=== PATIENT | male | born 1990 | race American Indian/Alaskan Native ===

== ENCOUNTER 2022-04-10 09:40 | Emergency (ER) | payer SELFPAY ==
[2022-04-10 10:19] VITALS: BP 98/71
--- NOTE | 2022-04-10 10:32 | Emergency Department Report ---
ED ENT HPI - General Chief complaint: Sore Throat Stated complaint: SORE THROAT/WHITE PATCHES Source: patient Mode of arrival: Ambulatory Limitations: No Limitations - History of Present Illness Initial comments: 32-year-old male presents to the ED complaining of sore throat x2 days. Patient states that he noticed some exudate on his tonsils and tried to remove it with a tongue blade. Patient is alert and oriented x3. No acute distress noted. No ill appearance noted. Denies any drooling. Patient states he been taking [id number] medication for pain. MD complaint: sore throat Onset/Timin -: week(s) Severity: moderate Severity scale (0 -10): 8 Quality: aching Consistency: intermittent Improves with: none Worsens with: swallowing - Related Data Previous Rx's Medication Instructions Recorded Last Taken Type Acetaminophen/Codeine [Tylenol 1 tab PO Q6H PRN 3 Days #12 tab 04/10/22 Unknown Rx /Codeine # 3 tab] Ibuprofen [Motrin] 800 mg PO Q8HR PRN 15 Days #30 04/10/22 Unknown Rx tablet Penicillin V Potassium 500 mg PO BID 10 Days #20 tab 04/10/22 Unknown Rx predniSONE [Deltasone] 50 mg PO QDAY 5 Days #5 tab 04/10/22 Unknown Rx Allergies Allergy/AdvReac Type Severity Reaction Status Date / Time nystatin Allergy Unknown Verified 04/10/22 10:19 ED Dental HPI - General Chief complaint: Sore Throat Stated complaint: SORE THROAT/WHITE PATCHES Source: patient Mode of arrival: Ambulatory Limitations: No Limitations - Related Data Previous Rx's Medication Instructions Recorded Last Taken Type Acetaminophen/Codeine [Tylenol 1 tab PO Q6H PRN 3 Days #12 tab 04/10/22 Unknown Rx /Codeine # 3 tab] Ibuprofen [Motrin] 800 mg PO Q8HR PRN 15 Days #30 04/10/22 Unknown Rx tablet Penicillin V Potassium 500 mg PO BID 10 Days #20 tab 04/10/22 Unknown Rx predniSONE [Deltasone] 50 mg PO QDAY 5 Days #5 tab 04/10/22 Unknown Rx Allergies Allergy/AdvReac Type Severity Reaction Status Date / Time nystatin Allergy Unknown Verified 04/10/22 10:19 ED Review of Systems ROS: Stated complaint: SORE THROAT/WHITE PATCHES Other details as noted in HPI Constitutional: denies: chills, fever Eyes: denies: eye pain, eye discharge, vision change ENT: throat pain. denies: ear pain Respiratory: denies: cough, shortness of breath, wheezing Cardiovascular: denies: chest pain, palpitations Endocrine: no symptoms reported Gastrointestinal: denies: abdominal pain, nausea, diarrhea Genitourinary: denies: urgency, dysuria Musculoskeletal: denies: back pain, joint swelling, arthralgia Skin: denies: rash, lesions Neurological: denies: headache, weakness, paresthesias Psychiatric: denies: anxiety, depression Hematological/Lymphatic: denies: easy bleeding, easy bruising ED Past Medical Hx - Past Medical History Previous Medical History?: Yes Additional medical history: tonsilitis - Medications Home Medications: Home Medications Medication Instructions Recorded Confirmed Last Taken Type Acetaminophen/Codeine [Tylenol 1 tab PO Q6H PRN 3 Days #12 tab 04/10/22 Unknown Rx /Codeine # 3 tab] Ibuprofen [Motrin] 800 mg PO Q8HR PRN 15 Days #30 04/10/22 Unknown Rx tablet Penicillin V Potassium 500 mg PO BID 10 Days #20 tab 04/10/22 Unknown Rx predniSONE [Deltasone] 50 mg PO QDAY 5 Days #5 tab 04/10/22 Unknown Rx ED Physical Exam - General Limitations: No Limitations General appearance: alert, in no apparent distress - Head Head exam: Present: atraumatic, normocephalic - Eye Eye exam: Present: normal appearance - ENT ENT exam: Present: mucous membranes moist - Neck Neck exam: Present: normal inspection - Respiratory Respiratory exam: Present: normal lung sounds bilaterally. Absent: respiratory distress - Cardiovascular Cardiovascular Exam: Present: regular rate, normal rhythm. Absent: systolic murmur, diastolic murmur, rubs, gallop - GI/Abdominal GI/Abdominal exam: Present: soft, normal bowel sounds - Rectal Rectal exam: Present: deferred - Extremities Exam Extremities exam: Present: normal inspection - Back Exam Back exam: Present: normal inspection - Neurological Exam Neurological exam: Present: alert, oriented X3 - Psychiatric Psychiatric exam: Present: normal affect, normal mood - Skin Skin exam: Present: warm, dry, intact, normal color. Absent: rash ED Course Vital Signs 04/10/22 10:14 Temperature 98.8 F Pulse Rate 86 Respiratory 18 Rate Blood Pressure 98/71 O2 Sat by Pulse 100 Oximetry ED Medical Decision Making - Medical Decision Making 32-year-old male presents to the ED complaining of sore throat x2 days. Patient states that he noticed some exudate on his tonsils and tried to remove it with a tongue blade. Patient is alert and oriented x3. No acute distress noted. No ill appearance noted. Denies any drooling. Patient states he been taking [id number] medication for pain. Physical examination erythema, tonsillar exudate and tonsillomegaly noted. Rechecked the patient is resting quietly , comfortable and feeling better. I discussed the results of diagnostic study, my clinical impression and the plan for further treatment with the patient. Patient agrees with plan and discharge at this present time. All question addressed. I have given the patient instruction regarding a diagnosis ,expectation ,follow- up and return precaution. I explained to the patient that emergent condition may arise and to return to the ED for new worsen and any new persisting condition. I have explained the importance of following up with the primary care physician or referral physician listed below has instructed. The patient verbalized understanding of discharge instruction. Critical care attestation.: If time is entered above; I have spent that time in minutes in the direct care of this critically ill patient, excluding procedure time. ED Disposition Clinical Impression: Strep throat Disposition: 01 HOME / SELF CARE / HOMELESS Is pt being admited?: No Condition: Stable Instructions: Strep Throat, Adult Additional Instructions: take medication as prescribe return to Ed for worsen symptom Prescriptions: predniSONE [Deltasone] 50 mg PO QDAY 5 Days #5 tab Ibuprofen [Motrin] 800 mg PO Q8HR PRN 15 Days #30 tablet PRN Reason: Pain, Mild (1-3) Penicillin V Potassium 500 mg PO BID 10 Days #20 tab Acetaminophen/Codeine [Tylenol /Codeine # 3 tab] 1 tab PO Q6H PRN 3 Days #12 tab PRN Reason: Pain, Mild (1-3) Referrals: [facility] [Provider Group] - 3-5 Days [facility] [Outside] - 3-5 Days Forms: Work/School Release Form(ED) Time of Disposition: 10:33
== END 2022-04-10 11:25 | disposition home or self-care (01) ==
LOC: ED 09:40
DX: J02.9 Acute pharyngitis, unspecified (principal); Z91.09 Other allergy status, other than to drugs and biological substances
CPT/HCPCS: 99282